=== PATIENT | male | born 1980 | race Caucasian/White ===

== ENCOUNTER 2022-04-10 14:26 | Emergency (ER) | payer BC ==
[2022-04-10 15:14] LABS: CHLORIDE,CL 102 mmol/L (98-107); SODIUM,NA 139 mmol/L (136-145)
[2022-04-10 15:15] LABS: ANION GAP 11.3 mmol/L (5-15); ESTIMATED GFR 77 mL/min (>=60)
[2022-04-10] MEDS: Pantoprazole 40 MG Tab.CR PO ONE (15:52)
== END 2022-04-10 16:03 | disposition home or self-care (01) ==
LOC: VM.ED 14:26
DX: R07.89 Other chest pain (principal); R42 Dizziness and giddiness; E78.00 Pure hypercholesterolemia, unspecified; I10 Essential (primary) hypertension; Z88.8 Allergy status to other drugs, medicaments and biological substances; Z79.899 Other long term (current) drug therapy
CPT/HCPCS: 36415; 80053; 82550; 83615; 84484; 85025; 86140; 99284; 99285; A9270-GY